=== PATIENT | male | born 2000 | race Caucasian/White ===

== ENCOUNTER 2024-08-02 16:19 | Emergency (ER) | payer BC, OTHER, SELFPAY ==
[2024-08-02 16:47] VITALS: BP 111/72; PULSE 80; RESP 16; TEMP 37.1; O2SAT 98; BMI 22.6
--- NOTE | 2024-08-02 16:50 | CRLHL7_ITS ---
For Patients: As a result of the Century Cures Act, medical imaging exams and procedure reports are released immediately into your electronic medical record. You may view this report before your referring provider. If you have questions, please contact your health care provider. Indication: Pain Technique: Three views of the left foot Comparison: None Findings: Normal alignment and mineralization. There is no acute fracture, dislocation or suspicious bony lesion. Joints are preserved. Soft tissues are unremarkable. Impression: Negative study. Dictated by Jerod Gonzales MD @ 08/02/2024 5:36:42 PM (Electronically Signed)
--- NOTE | 2024-08-02 17:44 | ED.LOWEXIN ---
HPI - Extremity Injury (Lower) General Date Seen: 08/02/24 Chief Complaint: Extremity Pain/Injury, Lower Stated Complaint: L foot - may have broken my toe Time Seen by Provider: 08/02/24 17:15 Source: patient Mode of arrival: ambulatory Limitations: no limitations History of Present Illness HPI Narrative: Patient is a 23-year-old male with no pertinent medical problems presenting to the emergency department for left great toe pain. 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 Since then his left great toe hurts whenever he moves it. This happened around 14:00. His green jobs trainer gave him crutches and a boot and told him to come in to get checked for possible fracture. Denies any numbness to the toe. No other injuries noted. The Related Data Home Medications ?Medication ?Instructions ?Recorded ?Confirmed albuterol sulfate 90 mcg/actuation inhalation 06/12/22 08/07/23 aerosol inhaler cromolyn 20 mg/2 mL solution for inhalation 04/25/23 08/07/23 nebulization fluticasone propionate 100 1 inh inhalation BID 08/07/23 08/07/23 mcg/actuation blister powder for inhalation Previous Rx's ?Medication ?Instructions ?Recorded benzonatate 200 mg capsule 200 mg PO BID PRN cough #10 caps 08/07/23 prednisone 10 mg tablet 10 mg PO DIRECTED #22 tabs 08/07/23 Allergies Allergy/AdvReac Type Severity Reaction Status Date / Time lactase (From Dairy Aid) Allergy Verified 08/02/24 16:50 peanut Allergy Verified 08/02/24 16:50 Review of Systems Narrative: Pertinent systems reviewed and were negative unless stated in HPI PFSH PFSH Medical History Syncope ?R55 - Syncope and collapse (ICD-10) Social History Smoking Status: Never smoker Exam Narrative: Exam Narrative: Const: Well-nourished, Well-developed, in mild distress Eyes: PERRL, no conjunctival injection, and symmetrical lids HENT: Atraumatic external nose and ears. Moist mucous membranes. Removed MSK:Extremities w/o deformity, Normal Active ROM, some tenderness noted to the left great toe middle phalanx. No swelling or bruising noted Skin: Warm, Dry. No rashes or lesions. Neuro: Normal Muscle tone, No focal neurological deficits. Psych: Awake, Alert, & Oriented x3. Appropriate mood and affect. Const: Vital Signs, click to edit/add: Vital Signs - 24 hr 08/02/24 16:47 Temperature 98.7 F Pulse Rate [Right Pulse Oximeter] 80 Respiratory Rate 16 Blood Pressure [Ri ght Upper Arm] 111/72 Pulse Oximetry 98 Oxygen Delivery Me thod Room Air Course Vital Signs Vital signs: Initial Vital Signs Temperature 98.7 F 08/02/24 16:47 Temperature Source Temporal Artery Scan 08/02/24 16:47 Pulse Rate 80 08/02/24 16:47 Pulse Rhythm Regular 08/02/24 16:47 Pulse Strength 3+ Normal 08/02/24 16:47 Respiratory Rate 16 08/02/24 16:47 Blood Pressure 111/72 08/02/24 16:47 Blood Pressure Mean 85 08/02/24 16:47 Blood Pressure Position Sitting 08/02/24 16:47 Pulse Oximetry 98 08/02/24 16:47 Oxygen Delivery Method Room Air 08/02/24 16:47 Vital Signs Temperature 98.7 F 08/02/24 16:47 Pulse Rate 80 08/02/24 16:47 Respiratory Rate 16 08/02/24 16:47 Blood Pressure 111/72 08/02/24 16:47 Pulse Oximetry 98 08/02/24 16:47 Oxygen Delivery Method Room Air 08/02/24 16:47 Temperature 98.7 F 08/02/24 16:47 Pulse Rate 80 08/02/24 16:47 Respiratory Rate 16 08/02/24 16:47 Blood Pressure 111/72 08/02/24 16:47 Pulse Oximetry 98 08/02/24 16:47 Oxygen Delivery Method Room Air 08/02/24 16:47 MDM - Extremity Injury (Lower) MDM Narrative Medical decision making narrative: Patient is a 23-year-old male presenting for left great toe pain. X-ray of the toe was ordered. He is neurovascular intact. No other injuries noted on my exam. X-ray reviewed by myself and the radiologist shows no acute fractures. Will discharge him home at this time. Even if there is a small occult fracture we cannot see on the CT treatment for it will be the same with either niall taping or using the walking boot. I informed him of this. He states he understands. Imaging Data X-ray left foot: Attestation: I have reviewed the pertinent imaging results. Radiologist's impression: Negative study. Dictated by Jerod Gonzales MD @ 08/02/2024 5:36:42 PM Discharge Plan Discharge Clinical Impression: Pain of left great toe Patient Disposition: Home, Self-Care Condition: Stable Additional Instructions: We do not see any fractures at this time. Even if there is a small occult fracture we cannot see on the x-ray treatment for it would still be niall taping or using a walking boot. Return for new or worsening symptoms. Prescriptions: No Action albuterol sulfate 90 mcg/actuation HFA aerosol inhaler inhalation cromolyn 20 mg/2 mL solution for nebulization inhalation prednisone 10 mg tablet 10 mg PO DIRECTED Qty: 22 0RF Rx Instructions: Take 40mg on day one. Take 30mg daily on days 2-4. Take 20mg daily on days 5-7. Take 10mg daily on days 8-10. benzonatate 200 mg capsule 200 mg PO BID PRN (Reason: cough) Qty: 10 0RF fluticasone propionate 100 mcg/actuation blister with device 1 inh inhalation BID Follow Up/Referrals: Rosy Davison [employer] [Primary Care Provider] - Stand Alone Forms: [employer] Info Instructions
--- OUTSIDE RECORDS SUMMARY | 2024-08-02 23:51 | XMS_ITS | Clinical Summary ---
Author Organization [facility] Address [place], [place] [address] Care Team Providers Care Grain Unloader Name Role Phone Alfredito Younger MD Primary Care Provider U navailable Allergies No known active allergies Medications fluticasone (FLOVENT HFA) 110 mcg/Actuation inhalerIndicatio ns:Other adverse food reactions, not elsewhere classified Inhale 1 Puff by mouth 2 times daily. 3 Inhaler 11 02/04/2013 Active albuterol HFA (PRO-AIR,VENTOLI N,PROVENTIL) 90 mcg/actuation inhalerIndicatio ns:Other adverse food reactions, not elsewhere classified Inhale 2 Puffs by mouth every 4 hours if needed for Wheezing. 2 Inhaler 3 02/04/2013 Active albuterol HFA (PROAIR HFA) 90 mcg/actuation inhaler Inhale 2 Puffs by mouth every 4 hours if needed. 2 Inhaler 1 06/28/2013 Active AUVI-Q 0.3 mg/0.3 mL (1:1,000) injection Use as instructed. Follow Action Plan 2 Each 0 03/30/2014 Active Active Problems Problem Noted Date Diagnosed Date Unspecified asthma(493.90) 04/02/2012 Food allergy 05/30/2011 Encounters Date Type Department Care Team Description 06/29/2024 Telephone [facility] [address], [place] [id number] Pcp, No Medication Management (allergy shots) 06/03/2024 7:45 AM [employer] Nurse/Clinic Staff Only [facility] [address] [place] [address] Immunization/Injectio n (ALLERGY INJECTIONS ) 06/03/2024 Travel 05/20/2024 8:30 AM [employer] Nurse/Clinic Staff Only [facility] [address] [place] [address] Immunization/Injectio n (ALLERGY INJECTIONS ) 05/20/2024 Travel 05/06/2024 8:15 AM CDT Nurse/Clinic Staff Only [facility] [address] [facility] [address] Immunization/Injectio n (ALLERGY INJECTIONS ) 05/06/2024 Travel from Last 3 Months Immunizations Name Administration Dates Next Due DTaP 08/26/2007,11/24/2003,2002 [id number] (Pediarix) 01/27/2003,2002 HIB HbOC (HibTITER) 11/24/2003,2002 HIB-HepB (Comvax) 2002 HPV 9 (Gardasil 9) 03/11/2018,03/05/2016 Hepatitis A (Peds) 03/05/2016,10/13/2014 Human Papilloma Virus Vaccine 10/13/2014 Inactivated Polio Vaccine 08/26/2007,2002 Influenza A (H1N1), Inactivated 06/30/2009,05/31 Influenza Virus, Unspecified 05/03/2004 Influenza, IIV3 (Age 6-35 mos) 6,05/06/2012,04/25/2011,05/25 Influenza, IIV3 (Age >=3 years) 05/10/2013,04/29 Influenza, IIV4 04/12/2022,,05/09/2020,04/16,05/10/2018,05/25/2017 Influenza,LAIV3 Live Intrana patrice (Flumist) 03/03/2009 Influenza,LAIV4 Live Intrana patrice (Flumist) 06/05/2015,05/06/2014 MENINGOCOCCAL VACCINE 2 VIAL [id number] (MENVEO) 05/05/2019 MMR 2003 MMRV 08/26/2007 Meningococcal B 02/13/2022 Meningococcal Vaccine (Menactra) 10/13/2014 Pneumococcal conj 7-Valent (Prevnar 7) 0 2003,01/27/2003,2002,09/23 Tdap 10/13/2014 Varicella Vaccine 2003 Social History Tobacco Use Types Packs/Day Years Used Date Smoking Tobacco: Never Smokeless Tobacco: Never Alcohol Use Standard Drinks/Week Comments Never 0 (1 standard drink = 0.6 oz pur e alcohol) Social Connections Answer Date Recorded Frequency of Communication with Friends and Fami ly Not on file 04/08/2022 Sex and Gender Information Value Date Recorded Sex Assigned at Not on file Legal Sex Male 6:29 AM [employer] Gender Identity Not on file Sexual Orientation Not on file Obstetrics History Last Filed Vital Signs Vital Sign Reading Time Taken Comments Blood Pressure 124/76 03/10/2022 5:21 PM CDT Pulse 98 03/10/2022 5:21 PM CDT Temperature 37.9 C (100.3 F) 03/10/2022 5:21 PM CDT Respiratory Rate 18 03/10/2022 5:21 PM CDT Oxygen Saturation 97% 03/10/2022 5:21 PM CDT Inhaled Oxygen Concentration - - Weight 77.1 kg (170 lb) 03/10/2022 5:21 PM CDT Height 182.9 cm (6') 03/10/2022 5:21 PM CDT Body Mass Index 23.06 03/10/2022 5:21 PM CDT Plan of Treatment Health Maintenance Due Date Last Done Comments Depression screening for age 12+ 2014 HIV for age 15-65 2017 BMI (ht and wt on same day) for age 18+ 2020 Hepatitis C screening for age 18-79 2020 COVID-19 vaccine series (2023- season) 2024 06/04/2023, 07/01/2022, 05/30/2021, Additional history exists Influenza for age 9-49 03/14/2024 , 04/25/2021, 05/09/2020, Additional history exists Tetanus booster 10/13/2024 10/13/2014 Pneumococcal series for age 6-49 Aged Out 2003, 01/27/2003, 2002, Additional history exists No longer eligible based on patient's age to complete this topic Tdap Completed 10/13/2014 HPV series for age 9-26 Completed 03/11/20 18, 03/05/2016, 10/13/2014 Meningococcal series for age 11-21 Completed 05/05/2019, 10/13/2014 Insurance [employer] [facility] [employer] [facility] Care Teams Grain Unloader Relationship Specialty Start Date End Date Aren, Alfredito Lee, MD PCP - General Pediatric 03/10/22
== END 2024-08-02 18:10 | disposition home or self-care (01) ==
LOC: ED 18:00
PROVIDERS: Emergency Provider Student in an Organized Health Care Education/Training Program
DX: M79.675 Pain in left toe(s) (principal)
CPT/HCPCS: 73630; 99282; 99283; 99284